=== PATIENT | female | born 1960 | race Caucasian/White ===

== ENCOUNTER 2017-10-21 13:45 | Emergency (ER) | payer BC, OTHER ==
[2017-10-21 14:46] LABS: BASOPHILS % (AUTO) 0.8 % (0.0-5.0); HEMATOCRIT 46.1 % (36-48); LYMPHOCYTES % (AUTO) 30.4 % (21.0-51.0); MEAN CORPUSCULAR HEMOGLOBIN 31.1 pg (27.0-33.0); MEAN CORPUSCULAR HGB CONC 34.5 g/dL (32.0-36.0); MEAN CORPUSCULAR VOLUME 90.2 fL (79-99); MONOCYTES % (AUTO) 6.7 % (3.0-13.0); NEUTROPHILS % (AUTO) 60.1 % (40.0-77.0); PLATELET COUNT (AUTO) 261 K/uL (130-400); RED BLOOD CELL COUNT(AUTO) 5.11 MIL/uL (4.00-5.50); WHITE BLOOD COUNT (AUTO) 9.8 K/uL (4.8-10.8)
[2017-10-21] MEDS ORDERED: ONDANSETRON HCL 4 MG/2 ML VIAL ONE (14:53)
[2017-10-21] MEDS ORDERED: MORPHINE SULFATE 4 MG/1ML SYG ONE (14:53)
[2017-10-21] MEDS ORDERED: HYDRALAZINE HCL 20 MG/ML VIAL ONE (14:53)
[2017-10-21 15:04] LABS: POTASSIUM 3.5 mmol/L (3.5-5.1)
[2017-10-21 15:06] LABS: BILIRUBIN,TOTAL 0.3 mg/dL (0.2-1.0); TOTAL PROTEIN, SERUM 7.6 g/dL (6.0-8.3)
[2017-10-21 15:19] LABS: APPEARANCE,URINE Clear (CLEAR); BILIRUBIN,URINE Negative (NEGATIVE); COLOR,URINE Yellow (YELLOW); GLUCOSE, URINE (UA) Negative (NEGATIVE); KETONES,URINE Negative (NEGATIVE); LEUKOCYTE ESTERASE ,URINE Negative (NEGATIVE); NITRATE,URINE Negative (NEGATIVE); OCCULT BLOOD,URINE Trace (NEGATIVE); PH,URINE 6.5 (5.0-8.0); PROTEIN,URINE Negative (NEGATIVE); UROBILINOGEN,URINE 0.2 mg/dL (0.2-1.0)
[2017-10-21 15:35] LABS: BACTERIA,URINE Rare /HPF (None Seen); RBC,URINE None Seen /HPF (0-1); WBC,URINE 0-1 /HPF (0-1)
[2017-10-21] MEDS ORDERED: LISINOPRIL 5 MG TABLET ONE (17:13)
== END 2017-10-21 17:36 | disposition home or self-care (01) ==
LOC: EDH 13:45
DX: R10.31 Right lower quadrant pain (principal); R19.7 Diarrhea, unspecified; I10 Essential (primary) hypertension; Z90.710 Acquired absence of both cervix and uterus; Z90.49 Acquired absence of other specified parts of digestive tract; Z98.890 Other specified postprocedural states; Z72.0 Tobacco use
CPT/HCPCS: 36415; 74176; 80053; 81001; 83690; 84484; 85025; 93005; 96374; 96375; 99285; J0360; J2270; J2405

== ENCOUNTER 2018-10-18 19:08 | Inpatient (IN) | payer SELFPAY ==
[~2018-10-18] VITALS: Ht 157.5 cm; Wt 72.5 kg
[2018-10-18] MEDS ORDERED: ASPIRIN 325 MG TABLET ONE (19:45)
[2018-10-18] MEDS ORDERED: DIAZEPAM 5 MG TABLET ONE (19:46)
[2018-10-18 20:10] LABS: AMPHET/METH SCREEN,URINE NEGATIVE (NEGATIVE); BARBITURATE SCREEN, URINE NEGATIVE (NEGATIVE); BENZODIAZEPINES SCREEN,URINE NEGATIVE (NEGATIVE); CANNABINOID SCREEN,URINE NEGATIVE (NEGATIVE); COCAINE SCREEN,URINE NEGATIVE (NEGATIVE); OPIATE SCREEN,URINE NEGATIVE (NEGATIVE); PHENCYCLIDINE SCREEN,URINE NEGATIVE (NEGATIVE)
[2018-10-18 20:16] LABS: BASOPHILS % (AUTO) 0.7 % (0.0-5.0); EOSINOPHILS % (AUTO) 1.4 % (0.0-8.0); HEMATOCRIT 50.5 % (36-48); MEAN CORPUSCULAR HEMOGLOBIN 30.9 pg (27.0-33.0); MEAN CORPUSCULAR HGB CONC 33.8 g/dL (32.0-36.0); MEAN CORPUSCULAR VOLUME 91.3 fL (79-99); MONOCYTES % (AUTO) 7.5 % (3.0-13.0); NEUTROPHILS % (AUTO) 63.4 % (40.0-77.0); NUCLEATED RED BLOOD CELLS 0.1 % (0.0-0.19); PLATELET COUNT (AUTO) 239 K/uL (130-400); RED BLOOD CELL COUNT(AUTO) 5.53 MIL/uL (4.00-5.50); RED CELL DISTRIBUTION WIDTH 13.9 % (11.0-15.5); WHITE BLOOD COUNT (AUTO) 9.3 K/uL (4.8-10.8)
[2018-10-18 20:27] LABS: ALBUMIN 4.5 g/dL (3.5-5.0); BILIRUBIN,TOTAL 0.6 mg/dL (0.2-1.0); CREATININE 1.2 mg/dL (0.5-1.5)
[2018-10-18] MEDS ORDERED: NITROGLYCERIN 1GM/1 INCH PACKET TD ONE (21:06)
[2018-10-18] MEDS ORDERED: LABETALOL 20 MG/4 ML DISP.SYRIN IV ONE ×3 (22:13→23:52)
[2018-10-19] MEDS ORDERED: IPRATROPIUM/ALBUTEROL SULFATE 3 ML SOLUTION IH PRN
[2018-10-19] MEDS ORDERED: HYDROCODONE/ACETAMINOPHEN 5/325 MG TAB PO PRN ×2
[2018-10-19] MEDS ORDERED: POTASSIUM CHLORIDE 20MEQ/100ML 100 ML IV PRN
[2018-10-19] MEDS ORDERED: POTASSIUM CHLORIDE 10% ELIXIR 20 MEQ/15 ML UDCUP PO PRN
[2018-10-19] MEDS ORDERED: NITROGLYCERIN 0.4 MG SL TAB SL PRN
[2018-10-19] MEDS ORDERED: ACETAMINOPHEN 325 MG TAB PO PRN ×2
[2018-10-19] MEDS ORDERED: ONDANSETRON HCL 4 MG/2 ML VIAL IV PRN
[2018-10-19] MEDS ORDERED: LIDOCAINE HCL-MPF 1% 2ML VIAL IVP PRN
[2018-10-19] MEDS ORDERED: MAGNESIUM 2GM PREMIX 50ML 50 ML IV PRN
[2018-10-19] MEDS ORDERED: POTASSIUM CHLORIDE 20MEQ/100ML 100 ML IV ONE (00:07)
[2018-10-19] MEDS ORDERED: LIDOCAINE HCL-MPF 1% 2ML VIAL ONE ×2 (00:08→00:49)
--- NOTE | 2018-10-19 02:15 | NUR ---
ADMITTED TO ROOM, ORIENTATION TO ROOM AND CALL [facility]. PATIENT DENIES ANY COMPLAINTS OF CHEST PAIN OR DISCOMFORT AT PRESENT. CALL [facility] WITHIN REACH.
[2018-10-19 02:33] VITALS: BP 165/99
[2018-10-19] MEDS: SODIUM CHLORIDE 0.9% 1000ML 1,000 ML IV SCH ×4 (04:12→19:50)
[2018-10-19 04:30] LABS: BASOPHILS % (AUTO) 0.4 % (0.0-5.0); EOSINOPHILS % (AUTO) 0.6 % (0.0-8.0); HEMATOCRIT 44.4 % (36-48); LYMPHOCYTES % (AUTO) 12.4 % (21.0-51.0); MEAN CORPUSCULAR HEMOGLOBIN 31.7 pg (27.0-33.0); MEAN CORPUSCULAR HGB CONC 34.5 g/dL (32.0-36.0); MEAN CORPUSCULAR VOLUME 91.9 fL (79-99); MONOCYTES % (AUTO) 5.2 % (3.0-13.0); NEUTROPHILS % (AUTO) 81.4 % (40.0-77.0); NUCLEATED RED BLOOD CELLS 0.1 % (0.0-0.19); PLATELET COUNT (AUTO) 191 K/uL (130-400); RED BLOOD CELL COUNT(AUTO) 4.83 MIL/uL (4.00-5.50); RED CELL DISTRIBUTION WIDTH 13.4 % (11.0-15.5); WHITE BLOOD COUNT (AUTO) 12.6 K/uL (4.8-10.8)
[2018-10-19 05:00] LABS: ALBUMIN 3.9 g/dL (3.5-5.0); BILIRUBIN,TOTAL 0.4 mg/dL (0.2-1.0); CREATININE 1.1 mg/dL (0.5-1.5); POTASSIUM 4.1 mmol/L (3.5-5.1); TOTAL PROTEIN, SERUM 6.8 g/dL (6.0-8.3); TROPONIN I 0.38 ng/mL (0.00-0.06)
--- NOTE | 2018-10-19 05:44 | NUR ---
PATIENT REMOVED BIPAP MASK, O2 NASAL CANNULAE PUT INTO PLACE. PATIENT COMPLAIN OF BIPAP MASK HURTING HER NOSE, LIGHT RED LINE NOTED ON NASAL BRIDGE, NO OPEN WOUND NOTED. PATIENT MEDICATED FOR PAIN PER ORDERS, ICE AND BANDAID OFFERED AND PATIENT REFUSED.
[2018-10-19 07:34] VITALS: BP 136/87
[2018-10-19] MEDS: AMLODIPINE BESYLATE 5 MG TAB PO SCH (07:43)
[2018-10-19] MEDS: FAMOTIDINE 20MG TAB 20 MG TAB PO SCH (07:43)
[2018-10-19] MEDS: ASPIRIN 325 MG TABLET PO SCH (07:43)
[2018-10-19] MEDS: ENOXAPARIN SODIUM 30 MG/0.3 ML SQ SCH (07:44)
[2018-10-19] MEDS: ATORVASTATIN CALCIUM 20 MG TABLET PO SCH ×2 (07:45→20:07)
[2018-10-19] MEDS ORDERED: METOPROLOL TARTRATE 25 MG TAB PO SCH (09:00)
[2018-10-19] MEDS: METOPROLOL TARTRATE 25 MG TAB PO SCH ×2 (09:05→20:07)
--- NOTE | 2018-10-19 10:13 | NUR ---
DR. PALACIOS IN ROOM SPEAKING WITH PT. RE:PLAN OF CARE. QUESTIONS ANSWERED BY DR. PALACIOS.
[2018-10-19 11:37] VITALS: BP 130/79
[2018-10-19 13:01] LABS: TROPONIN I 0.38 ng/mL (0.00-0.06)
--- NOTE | 2018-10-19 14:35 | NUR ---
DC PLAN VISITED WITH PATIENT. PATIENT LIVES WITH DAUGHTER. INDEPENDENT ABLE TO PERFORM ADL'S. PATIENT HAS NO SERVICES OR DME'S. FEELS SAFE TO RETURN HOME. Addendum: 10/19/18 at 1437 by BLAIRE TEAGUE RN CM Amended: Links added.
[2018-10-19 15:15] VITALS: BP 154/98
[2018-10-19 19:00] VITALS: BP 159/99
[2018-10-19] MEDS: LABETALOL HCL 5 MG/ML 20ML VIAL IV SCH ×2 (19:13)
[2018-10-19 23:00] VITALS: BP 148/79
[2018-10-20] MEDS: SODIUM CHLORIDE 0.9% 1000ML 1,000 ML IV SCH ×2 (00:17→12:44)
[2018-10-20 03:00] VITALS: BP 150/83
[2018-10-20 03:57] LABS: HEMATOCRIT 41.4 % (36-48); MEAN CORPUSCULAR HEMOGLOBIN 31.2 pg (27.0-33.0); MEAN CORPUSCULAR HGB CONC 34.3 g/dL (32.0-36.0); PLATELET COUNT (AUTO) 187 K/uL (130-400); RED BLOOD CELL COUNT(AUTO) 4.55 MIL/uL (4.00-5.50); WHITE BLOOD COUNT (AUTO) 9.2 K/uL (4.8-10.8)
[2018-10-20 04:03] LABS: HEMOGLOBIN A1C 5.9 % (4.0-6.0)
[2018-10-20 04:21] LABS: B-TYPE NATRIURETIC PEPTIDE 233 pg/mL (0-100)
[2018-10-20 04:27] LABS: ALBUMIN 3.3 g/dL (3.5-5.0); CREATININE 0.9 mg/dL (0.5-1.5); POTASSIUM 3.1 mmol/L (3.5-5.1); TROPONIN I 0.32 ng/mL (0.00-0.06)
--- NOTE | 2018-10-20 05:55 | NUR ---
PATIENT REFUSED SHOWER THIS SHIFT
[2018-10-20 07:39] VITALS: BP 154/89
[2018-10-20] MEDS ORDERED: REGADENOSON 0.4 MG/5 ML PF SYG IVP SCH (11:15)
[2018-10-20] MEDS: AMLODIPINE BESYLATE 5 MG TAB PO SCH (12:39)
[2018-10-20] MEDS: ASPIRIN 325 MG TABLET PO SCH (12:39)
[2018-10-20] MEDS: METOPROLOL TARTRATE 25 MG TAB PO SCH ×2 (12:39→20:53)
[2018-10-20] MEDS: FAMOTIDINE 20MG TAB 20 MG TAB PO SCH (12:40)
[2018-10-20] MEDS: ENOXAPARIN SODIUM 30 MG/0.3 ML SQ SCH (12:40)
[2018-10-20] MEDS: POTASSIUM CHLORIDE 20 MEQ ERTAB PO PRN ×3 (12:54→20:53)
[2018-10-20 15:13] VITALS: BP 193/101
[2018-10-20] MEDS: HYDROCHLOROTHIAZIDE 25 MG TABLET PO SCH (16:27)
[2018-10-20] MEDS: LOSARTAN 50 MG TABLET PO SCH (16:27)
[2018-10-20 19:45] VITALS: BP 163/89
[2018-10-20] MEDS ORDERED: ATORVASTATIN CALCIUM 40 MG TABLET ONE (20:25)
[2018-10-20] MEDS ORDERED: ATORVASTATIN CALCIUM 40 MG TABLET PO SCH (20:49)
[2018-10-20] MEDS ORDERED: METOPROLOL TARTRATE 25 MG TAB PO SCH (21:00)
[2018-10-20 23:19] VITALS: BP 160/97
[2018-10-21 04:12] VITALS: BP 157/77
[2018-10-21] MEDS: POTASSIUM CHLORIDE 20 MEQ ERTAB PO PRN (06:30)
[2018-10-21] MEDS ORDERED: AMLO5TAB4 PO (07:01)
[2018-10-21] MEDS ORDERED: LOSA50TA2 PO (07:01)
[2018-10-21] MEDS ORDERED: METO25 PO (07:01)
[2018-10-21] MEDS ORDERED: ATOR20TA65 PO (07:01)
[2018-10-21] MEDS ORDERED: HYDR25TA PO (07:01)
[2018-10-21] MEDS ORDERED: Nitroglycerin 0.4MG Sl Tab SL (07:01)
[2018-10-21] MEDS ORDERED: ASPI-1197 PO (07:01)
[2018-10-21 07:33] VITALS: BP 171/92
[2018-10-21] MEDS: LABETALOL HCL 5 MG/ML 20ML VIAL IV SCH (07:48)
[2018-10-21] MEDS: HYDROCHLOROTHIAZIDE 25 MG TABLET PO SCH (07:51)
[2018-10-21] MEDS: FAMOTIDINE 20MG TAB 20 MG TAB PO SCH (07:51)
[2018-10-21] MEDS: LOSARTAN 50 MG TABLET PO SCH (07:51)
[2018-10-21] MEDS: AMLODIPINE BESYLATE 5 MG TAB PO SCH (07:51)
[2018-10-21] MEDS: ASPIRIN 325 MG TABLET PO SCH (07:51)
[2018-10-21] MEDS: METOPROLOL TARTRATE 25 MG TAB PO SCH (07:51)
[2018-10-21] MEDS: ENOXAPARIN SODIUM 30 MG/0.3 ML SQ SCH (07:52)
--- NOTE | 2018-10-21 10:00 | NUR ---
cm note spoke to pt regarding importance of taking meds as prescribed. provided pt with list of [email or web address] program assist for most of her meds, and also [employer] quotes with coupons for other 2 meds. also gave low income clinics in the area and importance of md followoup. pt states she has a family member that states she will assist with cost of meds. and will followup with meds and medical care.
[2018-10-21 11:16] VITALS: BP 151/72
[2018-10-21] MEDS ORDERED: ATORVASTATIN CALCIUM 40 MG TABLET PO SCH (21:00)
== END 2018-10-21 13:45 | disposition home or self-care (01) | DRG 305 ==
LOC: EDH 19:08 → EDHIP 19:09 → 2AH 10-19 02:11
PROVIDERS: ADMIT Internal Medicine; ATTEND Internal Medicine
DX: I16.1 Hypertensive emergency (principal); N17.9 Acute kidney failure, unspecified; R07.89 Other chest pain; N18.2 Chronic kidney disease, stage 2 (mild); E87.6 Hypokalemia; I25.10 Atherosclerotic heart disease of native coronary artery without angina pectoris; E78.5 Hyperlipidemia, unspecified; E04.2 Nontoxic multinodular goiter; I12.9 Hypertensive chronic kidney disease with stage 1 through stage 4 chronic kidney disease, or unspecified chronic kidney disease; E11.22 Type 2 diabetes mellitus with diabetic chronic kidney disease; F17.210 Nicotine dependence, cigarettes, uncomplicated; Z90.710 Acquired absence of both cervix and uterus; Z90.49 Acquired absence of other specified parts of digestive tract; Z98.891 History of uterine scar from previous surgery; Z87.11 Personal history of peptic ulcer disease; Z82.49 Family history of ischemic heart disease and other diseases of the circulatory system
CPT/HCPCS: 36415; 71045; 78452; 80048; 80053; 80061; 80305; 82040; 82550; 83036; 83735; 83874; 83880; 84132; 84484; 85025; 85027; 93005; 94664; 99291; A9500; G0378; J1650; J2785; J3480; J3490; J7030